=== PATIENT | male | born 1945 | race African-American/Black ===

== ENCOUNTER 2023-07-09 13:00 | Inpatient (IN) | payer OTHER ==
[~2023-07-09] VITALS: Ht 175.3 cm; Wt 76.7 kg
[2023-07-09 16:16] VITALS: BP 119/79; PULSE 45; RESP 18; TEMP 97.7
[2023-07-09] MEDS ORDERED: MAGNESIUM/ALUMINUM HYDROXIDE/SIMETHICONE 30ML UDC PO PRN (16:30)
[2023-07-09] MEDS ORDERED: DOCUSATE SODIUM 100MG CAPSULE PO PRN (16:30)
[2023-07-09] MEDS ORDERED: ONDANSETRON HCL 4MG/2ML INJ IV PRN (16:30)
[2023-07-09] MEDS ORDERED: GUAIFENESIN 200MG/10ML SUGAR FREE UDC PO PRN (16:30)
[2023-07-09] MEDS ORDERED: ACETAMINOPHEN 650MG/20.3ML UDC GT PRN (16:30)
[2023-07-09] MEDS ORDERED: CLONIDINE 0.1MG TABLET PO PRN (16:30)
[2023-07-09] MEDS ORDERED: IPRATROPIUM/ALBUTEROL 0.5-3(2.5)MG/3ML NEB HHN PRN (16:30)
[2023-07-09] MEDS: PANTOPRAZOLE SODIUM 40 MG/VIAL IV SCH (17:45)
[2023-07-09] MEDS: BLOOD SUGAR DIAGNOSTIC STRIP TEST SCH ×2 (17:52→21:10)
[2023-07-09] MEDS ORDERED: DEXTROSE 50% WATER 50ML SYRINGE IV PRN (18:00)
[2023-07-09] MEDS: INSULIN LISPRO 100 UNITS/ML SUBCUT SCH ×2 (18:10→21:00)
[2023-07-09] MEDS ORDERED: CRES10 PO (18:41)
[2023-07-09] MEDS ORDERED: FLUT15.844 BOTHNSTRLS (18:41)
[2023-07-09] MEDS ORDERED: GABA-529 PO (18:41)
[2023-07-09] MEDS ORDERED: TELM80TA8 PO (18:41)
[2023-07-09] MEDS ORDERED: TAMS-11 PO (18:41)
[2023-07-09] MEDS ORDERED: CLOP75TA33 PO (18:41)
[2023-07-09] MEDS ORDERED: NITR0.4T49 SL (18:41)
[2023-07-09] MEDS ORDERED: DEXTL MT (18:41)
[2023-07-09] MEDS: NITROGLYCERIN 0.4MG TABLET SL SL PRN (18:47)
[2023-07-09] MEDS: CLOPIDOGREL 75MG TABLET PO SCH (18:47)
[2023-07-09 20:00] VITALS: BP_SYST 127; BP_SYST 132; BP_SYST 146; BP_DIAS 63; BP_DIAS 67; BP_DIAS 76; PULSE 66; RESP 18; TEMP 97.2
[2023-07-09] MEDS: ATORVASTATIN CALCIUM 40MG TABLET PO SCH (21:09)
[2023-07-09] MEDS: GABAPENTIN 100MG CAPSULE PO SCH (21:09)
[2023-07-09 21:50] LABS: CLARITY URINE CLEAR (CLEAR); COLOR URINE YELLOW (YELLOW); GLUCOSE URINE 3+ (NEGATIVE); KETONES URINE NEGATIVE (NEGATIVE); LEUKOCYTE ESTERASE URINE NEGATIVE (NEGATIVE); NITRITE URINE NEGATIVE (NEGATIVE); OCCULT BLOOD URINE NEGATIVE (NEGATIVE); PROTEIN URINE NEGATIVE (NEGATIVE); SPECIFIC GRAVITY URINE 1.017 (1.005-1.030); UROBILINOGEN URINE 0.2 E.U./dL (0.2-1.0)
[2023-07-09 22:02] LABS: *AMPHETAMINES SCREEN URINE NEGATIVE (NEGATIVE); *BARBITURATES SCREEN URINE NEGATIVE (NEGATIVE); *BENZODIAZEPINES SCREEN URINE NEGATIVE (NEGATIVE); *COCAINE SCREEN URINE NEGATIVE (NEGATIVE); CANNABINOID URINE SCREEN NEGATIVE (NEGATIVE); ECSTASY MDMA SCREEN URINE NEGATIVE (NEGATIVE); METHADONE URINE SCREEN NEGATIVE (NEGATIVE); OPIATES URINE SCREEN NEGATIVE (NEGATIVE); PHENCYCLIDINE URINE SCREEN NEGATIVE (NEGATIVE)
[2023-07-09 22:08] LABS: BACTERIA URINE TRACE; RBC URINE NONE SEEN /hpf (0-2); SQUAMOUS EPITHELIAL CELL URINE FEW /lpf (RARE/1+); WBC URINE NONE SEEN /hpf (0-2)
[2023-07-10] VITALS (7 sets, daily range): BP systolic 100–148; BP diastolic 46–72; PULSE 49–66; RESP 18–20; TEMP 96.5–97.7
[2023-07-10] MEDS: NITROGLYCERIN 0.4MG TABLET SL SL PRN (03:14)
[2023-07-10] MEDS: INSULIN LISPRO 100 UNITS/ML SUBCUT SCH ×4 (07:52→21:00)
[2023-07-10] MEDS: BLOOD SUGAR DIAGNOSTIC STRIP TEST SCH ×4 (07:52→21:16)
[2023-07-10 08:22] LABS: CHLORIDE 109 mEq/L (98-107); INDEX HEMOLYSI 1 (1-3); INDEX ICTERIC 1 (1-4); INDEX LIPEMIC 1 (1-3); POTASSIUM 3.7 mEq/L (3.5-5.1); SODIUM 139 mEq/L (136-145)
[2023-07-10 08:33] LABS: BASOPHILS % 0.4 % (0.0-2.0); DIFFERENTIAL COMMENT 0; EOSINOPHILS % 1.5 % (0.0-5.0); HEMATOCRIT. 33.9 % (42.0-52.0); HEMOGLOBIN. 11.2 g/dL (14.0-18.0); LYMPHOCYTES % 13.8 % (20.0-50.0); MEAN CORPUSCULAR HEMOGLOBIN 26.3 pg (28.0-32.0); MEAN CORPUSCULAR HGB CONC 33.2 g/dL (31.0-37.0); MEAN CORPUSCULAR VOLUME 79.2 fL (80.0-94.0); MONOCYTES % 11.1 % (2.0-8.0); NEUTROPHILS % 73.2 % (40.0-76.0); PLATELET 172 x1000/uL (130-400); RED BLOOD CELL COUNT 4.28 mill/uL (4.7-6.1); RED CELL DISTRIBUTION WIDTH 15.4 % (11.6-14.6); WHITE BLOOD COUNT 6.7 x1000/uL (4.5-11.0)
[2023-07-10 08:37] LABS: ALANINE AMINOTRANSFERASE 19 IU/L (13-61); ALBUMIN 3.3 g/dL (3.4-5.0); ASPARTATE AMINOTRANSFERASE 17 IU/L (15-37); BILIRUBIN TOTAL 0.5 mg/dL (0.1-1.0); CALCIUM 9.1 mg/dL (8.5-10.1); CARBON DIOXIDE 21 mEq/L (21-32); CHOLESTEROL 166 mg/dL (<200); CREATINE KINASE 57 IU/L (39-308); CREATINE KINASE MB FRACTION 1.5 ng/mL (0.5-3.6); CREATININE 1.6 mg/dL (0.6-1.3); GLUCOSE 95 mg/dL (70-105); HDL CHOLESTEROL 39 mg/dL (40-59); LDL CHOLESTEROL 111 mg/dL (5-100); PROTEIN TOTAL 7.7 g/dL (6.0-8.3); T4 FREE 0.97 ng/dL (0.76-1.46); TRIGLYCERIDE 124 mg/dL (0-150); TROPONIN I HIGH SENSITIVITY 14 ng/L (<78); UREA NITROGEN BLOOD 34 mg/dL (7-21)
[2023-07-10] MEDS: PANTOPRAZOLE SODIUM 40 MG/VIAL IV SCH (09:32)
[2023-07-10] MEDS: CLOPIDOGREL 75MG TABLET PO SCH (09:55)
[2023-07-10] MEDS: ASPIRIN 81MG EC TABLET PO SCH (09:55)
[2023-07-10] MEDS: NIFEDIPINE XL 30MG TAB PO SCH (09:55)
[2023-07-10] MEDS: ISOSORBIDE MONONITRATE 30MG TABLET SR 24HR PO SCH (12:52)
[2023-07-10 13:21] LABS: PHOSPHORUS 2.9 mg/dL (2.5-4.9)
[2023-07-10] MEDS: SODIUM CHLORIDE 0.9% 1,000 ML IV SCH (13:30)
[2023-07-10] MEDS: GABAPENTIN 100MG CAPSULE PO SCH (21:16)
[2023-07-10] MEDS: ATORVASTATIN CALCIUM 40MG TABLET PO SCH (21:16)
[2023-07-11] VITALS (9 sets, daily range): BP systolic 106–180; BP diastolic 57–75; PULSE 53–63; RESP 16–20; TEMP 97–98
[2023-07-11] MEDS: BLOOD SUGAR DIAGNOSTIC STRIP TEST SCH ×4 (07:40→20:41)
[2023-07-11] MEDS: INSULIN LISPRO 100 UNITS/ML SUBCUT SCH ×4 (07:40→20:41)
[2023-07-11] MEDS: ASPIRIN 81MG EC TABLET PO SCH (08:42)
[2023-07-11] MEDS: NIFEDIPINE XL 30MG TAB PO SCH (08:42)
[2023-07-11] MEDS: ISOSORBIDE MONONITRATE 30MG TABLET SR 24HR PO SCH (08:42)
[2023-07-11] MEDS: CLOPIDOGREL 75MG TABLET PO SCH (08:42)
[2023-07-11] MEDS: FAMOTIDINE 20MG TABLET PO SCH (08:42)
[2023-07-11] MEDS: SODIUM CHLORIDE 0.9% 1,000 ML IV SCH (08:43)
[2023-07-11 15:43] LABS: BASOPHILS % 0.4 % (0.0-2.0); EOSINOPHILS % 1.4 % (0.0-5.0); HEMATOCRIT. 34.6 % (42.0-52.0); MEAN CORPUSCULAR HEMOGLOBIN 25.5 pg (28.0-32.0); MEAN CORPUSCULAR HGB CONC 31.9 g/dL (31.0-37.0); MEAN PLATELET VOLUME 10.1 fl (7.4-10.4); MONOCYTES % 11.1 % (2.0-8.0); NEUTROPHILS % 73.1 % (40.0-76.0); PLATELET 181 x1000/uL (130-400); RED BLOOD CELL COUNT 4.32 mill/uL (4.7-6.1); RED CELL DISTRIBUTION WIDTH 15.4 % (11.6-14.6); WHITE BLOOD COUNT 7.5 x1000/uL (4.5-11.0)
[2023-07-11 16:00] LABS: CHLORIDE 110 mEq/L (98-107); INDEX HEMOLYSI 1 (1-3); INDEX ICTERIC 1 (1-4); INDEX LIPEMIC 1 (1-3); POTASSIUM 3.8 mEq/L (3.5-5.1); SODIUM 138 mEq/L (136-145)
[2023-07-11 16:08] LABS: ALANINE AMINOTRANSFERASE 19 IU/L (13-61); ALBUMIN 3.3 g/dL (3.4-5.0); ASPARTATE AMINOTRANSFERASE 15 IU/L (15-37); BILIRUBIN TOTAL 0.3 mg/dL (0.1-1.0); CALCIUM 8.5 mg/dL (8.5-10.1); CARBON DIOXIDE 20 mEq/L (21-32); CREATININE 1.6 mg/dL (0.6-1.3); GLUCOSE 96 mg/dL (70-105); PROTEIN TOTAL 7.6 g/dL (6.0-8.3); UREA NITROGEN BLOOD 38 mg/dL (7-21)
[2023-07-11] MEDS: GABAPENTIN 100MG CAPSULE PO SCH (21:12)
[2023-07-11] MEDS: ATORVASTATIN CALCIUM 40MG TABLET PO SCH (21:13)
[2023-07-12 00:22] VITALS: BP 119/65; PULSE 51; RESP 16; TEMP 97.2
[2023-07-12 04:00] VITALS: BP 151/74; PULSE 47; RESP 18; TEMP 96.6
[2023-07-12] MEDS: SODIUM CHLORIDE 0.9% 1,000 ML IV SCH (04:55)
[2023-07-12] MEDS: BLOOD SUGAR DIAGNOSTIC STRIP TEST SCH ×4 (06:57→20:51)
[2023-07-12 07:01] LABS: BASOPHILS % 0.6 % (0.0-2.0); EOSINOPHILS % 1.6 % (0.0-5.0); HEMATOCRIT. 32.7 % (42.0-52.0); HEMOGLOBIN. 10.5 g/dL (14.0-18.0); LYMPHOCYTES % 16.5 % (20.0-50.0); MEAN CORPUSCULAR HEMOGLOBIN 25.8 pg (28.0-32.0); MEAN CORPUSCULAR HGB CONC 32.1 g/dL (31.0-37.0); MEAN CORPUSCULAR VOLUME 80.4 fL (80.0-94.0); MEAN PLATELET VOLUME 9.4 fl (7.4-10.4); MONOCYTES % 11.7 % (2.0-8.0); NEUTROPHILS % 69.6 % (40.0-76.0); PLATELET 147 x1000/uL (130-400); RED BLOOD CELL COUNT 4.06 mill/uL (4.7-6.1); RED CELL DISTRIBUTION WIDTH 15.1 % (11.6-14.6)
[2023-07-12 07:12] LABS: CHLORIDE 112 mEq/L (98-107); INDEX HEMOLYSI 2 (1-3); INDEX ICTERIC 1 (1-4); INDEX LIPEMIC 1 (1-3); POTASSIUM 3.7 mEq/L (3.5-5.1); SODIUM 137 mEq/L (136-145)
[2023-07-12 07:21] LABS: ALANINE AMINOTRANSFERASE 17 IU/L (13-61); ALBUMIN 3.1 g/dL (3.4-5.0); ASPARTATE AMINOTRANSFERASE 20 IU/L (15-37); BILIRUBIN TOTAL 0.6 mg/dL (0.1-1.0); CALCIUM 8.9 mg/dL (8.5-10.1); CARBON DIOXIDE 18 mEq/L (21-32); CREATININE 1.4 mg/dL (0.6-1.3); GLUCOSE 96 mg/dL (70-105); PROTEIN TOTAL 7.4 g/dL (6.0-8.3); UREA NITROGEN BLOOD 31 mg/dL (7-21)
[2023-07-12 08:00] VITALS: BP_SYST 148; BP_SYST 157; BP_SYST 213; BP_DIAS 68; BP_DIAS 69; BP_DIAS 83; PULSE 46; RESP 17; TEMP 98.6
[2023-07-12] MEDS: INSULIN LISPRO 100 UNITS/ML SUBCUT SCH ×4 (08:10→20:51)
[2023-07-12] MEDS: ISOSORBIDE MONONITRATE 30MG TABLET SR 24HR PO SCH (08:48)
[2023-07-12] MEDS: ASPIRIN 81MG EC TABLET PO SCH (08:48)
[2023-07-12] MEDS: CLOPIDOGREL 75MG TABLET PO SCH (08:48)
[2023-07-12] MEDS: NIFEDIPINE XL 30MG TAB PO SCH (08:48)
[2023-07-12] MEDS: FAMOTIDINE 20MG TABLET PO SCH (08:48)
[2023-07-12] MEDS: TAMSULOSIN HCL 0.4MG SR CAPSULE PO SCH (11:00)
[2023-07-12 12:00] VITALS: BP 162/69; PULSE 50; RESP 50; TEMP 98.1
[2023-07-12] MEDS ORDERED: IODIXANOL 320MG/ML 100 ML BOTTLE IV ONE (13:10)
[2023-07-12] MEDS ORDERED: VERAPAMIL HCL 2.5 MG/1 ML 2ML VIAL IV ONE (13:11)
[2023-07-12] MEDS ORDERED: LIDOCAINE HCL 1% 10 MG/ML 10ML VIAL ONE (13:11)
[2023-07-12] MEDS ORDERED: HEPARIN 1000 UNITS/ML 10ML ONE (13:15)
[2023-07-12] MEDS ORDERED: FENTANYL CITRATE/PF 50MCG/ML 2ML VIAL ONE (13:16)
[2023-07-12] MEDS ORDERED: MIDAZOLAM HCL 2 MG/2 ML VIAL ONE (13:16)
[2023-07-12] MEDS ORDERED: DIPHENHYDRAMINE 50MG/ML VIAL ONE (13:44)
[2023-07-12] MEDS ORDERED: ASPIRIN 325MG TABLET ONE (14:34)
[2023-07-12] MEDS ORDERED: CLOPIDOGREL 75MG TABLET ONE (14:35)
[2023-07-12] MEDS ORDERED: ATROPINE SULFATE 1MG/10ML SYR IV PRN (15:00)
[2023-07-12] MEDS ORDERED: SODIUM CHLORIDE 0.45% 500 ML IV SCH (15:00)
[2023-07-12] MEDS ORDERED: ACETAMINOPHEN 325MG TABLET PO PRN (15:00)
[2023-07-12 16:00] VITALS: BP 166/75; PULSE 59; RESP 14; TEMP 97.9
[2023-07-12] MEDS: SODIUM CHLORIDE 0.45% 1,000 ML IV SCH (16:56)
[2023-07-12] MEDS: NIFEDIPINE XL 90MG TAB PO SCH (16:56)
[2023-07-12] MEDS ORDERED: TAMS-11 PO (18:02)
[2023-07-12] MEDS ORDERED: CHLO50TA PO (18:02)
[2023-07-12] MEDS ORDERED: CARV6.2548 PO (18:02)
[2023-07-12] MEDS ORDERED: DAPA5TAB PO (18:02)
[2023-07-12 20:00] VITALS: BP 159/70; PULSE 53; RESP 15; TEMP 98.2
[2023-07-12] MEDS: ATORVASTATIN CALCIUM 40MG TABLET PO SCH (20:51)
[2023-07-12] MEDS: GABAPENTIN 100MG CAPSULE PO SCH (20:51)
[2023-07-13 00:05] VITALS: BP 153/67; PULSE 61; RESP 21; TEMP 97.9
[2023-07-13 04:00] VITALS: BP 134/66; PULSE 58; RESP 19; TEMP 98
[2023-07-13] MEDS: SODIUM CHLORIDE 0.45% 1,000 ML IV SCH (04:35)
[2023-07-13] MEDS: BLOOD SUGAR DIAGNOSTIC STRIP TEST SCH (06:16)
[2023-07-13 06:53] LABS: BASOPHILS % 0.5 % (0.0-2.0); DIFFERENTIAL COMMENT 0; HEMATOCRIT. 31.5 % (42.0-52.0); HEMOGLOBIN. 10.4 g/dL (14.0-18.0); LYMPHOCYTES % 11.6 % (20.0-50.0); MEAN CORPUSCULAR HGB CONC 32.9 g/dL (31.0-37.0); MEAN PLATELET VOLUME 9.7 fl (7.4-10.4); MONOCYTES % 10.5 % (2.0-8.0); NEUTROPHILS % 75.4 % (40.0-76.0); PLATELET 142 x1000/uL (130-400); RED BLOOD CELL COUNT 3.99 mill/uL (4.7-6.1); RED CELL DISTRIBUTION WIDTH 15.3 % (11.6-14.6); WHITE BLOOD COUNT 5.7 x1000/uL (4.5-11.0)
[2023-07-13 07:19] LABS: POTASSIUM 3.5 mEq/L (3.5-5.1)
[2023-07-13] MEDS: INSULIN LISPRO 100 UNITS/ML SUBCUT SCH (07:20)
[2023-07-13 07:34] LABS: CALCIUM 8.8 mg/dL (8.5-10.1); CREATININE 1.4 mg/dL (0.6-1.3); PHOSPHORUS 2.7 mg/dL (2.5-4.9)
[2023-07-13 08:00] VITALS: BP 146/70; PULSE 54; RESP 16; TEMP 97.8
[2023-07-13] MEDS: ISOSORBIDE MONONITRATE 30MG TABLET SR 24HR PO SCH (08:18)
[2023-07-13] MEDS: NIFEDIPINE XL 90MG TAB PO SCH (08:19)
[2023-07-13] MEDS: FAMOTIDINE 20MG TABLET PO SCH (08:19)
[2023-07-13] MEDS: TAMSULOSIN HCL 0.4MG SR CAPSULE PO SCH (08:19)
[2023-07-13] MEDS: ASPIRIN 81MG EC TABLET PO SCH (08:19)
[2023-07-13] MEDS: CLOPIDOGREL 75MG TABLET PO SCH (08:19)
[2023-07-13] MEDS ORDERED: FAMO-135 MT (10:10)
[2023-07-13] MEDS ORDERED: ROSU20TA2 MT (10:10)
[2023-07-13] MEDS ORDERED: NIFE-32 MT (10:10)
[2023-07-13] MEDS ORDERED: ASPI-1406 PO (10:10)
[2023-07-13] MEDS ORDERED: ISOS30TA91 PO (10:10)
[2023-07-13 10:59] VITALS: PULSE 59; RESP 13; O2SAT 99
[2023-07-13 11:04] VITALS: BP 146/70; PULSE 58; TEMP 97.8; O2SAT 100
== END 2023-07-13 11:30 | disposition home or self-care (01) | DRG 247 ==
LOC: ER 14:12 → 7WST 15:30 → 3WST 07-12 14:49
PROVIDERS: ADMIT Internal Medicine; ATTEND Internal Medicine
PROC: 027035Z Dilation of Coronary Artery, One Artery with Two Drug-eluting Intraluminal Devices, Percutaneous Approach (ICD-10-PCS; principal; 2023-07-12)
PROC: 4A023N7 Measurement of Cardiac Sampling and Pressure, Left Heart, Percutaneous Approach (ICD-10-PCS; 2023-07-12)
PROC: B211YZZ Fluoroscopy of Multiple Coronary Arteries using Other Contrast (ICD-10-PCS; 2023-07-12)
DX: I25.110 Atherosclerotic heart disease of native coronary artery with unstable angina pectoris (principal); N17.9 Acute kidney failure, unspecified; I16.0 Hypertensive urgency; E86.0 Dehydration; I10 Essential (primary) hypertension; E11.9 Type 2 diabetes mellitus without complications; Z20.822 Contact with and (suspected) exposure to COVID-19; J44.9 Chronic obstructive pulmonary disease, unspecified; E11.51 Type 2 diabetes mellitus with diabetic peripheral angiopathy without gangrene; N40.0 Benign prostatic hyperplasia without lower urinary tract symptoms; E78.00 Pure hypercholesterolemia, unspecified; R55 Syncope and collapse; Z80.1 Family history of malignant neoplasm of trachea, bronchus and lung; Z82.3 Family history of stroke; Z83.3 Family history of diabetes mellitus; Z92.21 Personal history of antineoplastic chemotherapy; Z85.118 Personal history of other malignant neoplasm of bronchus and lung; Z95.2 Presence of prosthetic heart valve; Z79.82 Long term (current) use of aspirin; Z79.84 Long term (current) use of oral hypoglycemic drugs; Z86.73 Personal history of transient ischemic attack (TIA), and cerebral infarction without residual deficits; Z79.02 Long term (current) use of antithrombotics/antiplatelets; W18.30XA Fall on same level, unspecified, initial encounter; Y93.89 Activity, other specified; Y92.002 Bathroom of unspecified non-institutional (private) residence as the place of occurrence of the external cause; Y99.8 Other external cause status
CPT/HCPCS: 36415; 71045; 76770; 80048; 80053; 80061; 80305; 81003; 82550; 82553; 82962; 83036; 83735; 84100; 84439; 84484; 85025; 85347; 85379; 87426; 93005; 93306; 93970; 94640; 97165; 99285; C9113; C9803; J1200; J1644; J1815; J2250; J3010; J3490; J7030; Q9967